=== PATIENT | female | born 1945 | race Caucasian/White ===

== ENCOUNTER 2017-07-26 16:53 | Emergency (ER) | payer MEDICARE, BC ==
--- NOTE | 2017-07-26 17:13 | Emergency Department Record ---
History of Present Illness - General Chief complaint: Extremity Problem Stated complaint: RIGHT LEG INJURY Time Seen by Provider: 07/26/17 17:12 Source: Patient Mode of Arrival: Wheelchair Limitations: No limitations - History of Present Illness Initial comments: The patient is here due to injuring her R lower leg about 2 hours ago. She was splitting logs and a log rolled back and hit her in the R anterior lower leg. Now the leg is quite painful and swollen. She has not been walking on it because her family would not let her. She denies any numbness or tingling. MD Complaint: Extremity pain Onset/Timin -: Minutes(s) Location: Right, Lower Leg Severity scale (1-10): 6 Quality: Burning Consistency: Intermittent - Related Data Allergies Allergy/AdvReac Type Severity Reaction Status Date / Time acetaminophen [From Percocet] Allergy VOMITING Verified 12/18/14 19:38 lisinopril [From Prinivil] Allergy SWELLING Verified 12/18/14 19:38 OF THE FACE meperidine HCl [From Demerol] Allergy SWELLING Verified 12/18/14 19:38 OF THE FACE oxycodone HCl [From Percocet] Allergy VOMITING Verified 12/18/14 19:38 prochlorperazine edisylate Allergy NEUROTOXICI Verified 12/18/14 19:38 [From Compazine] TY prochlorperazine maleate Allergy NEUROTOXICI Verified 12/18/14 19:38 [From Compazine] TY azithromycin AdvReac VOMITING Verified 08/17/15 13:57 Travel Screening - Travel/Exposure Within Last 30 Days Have you traveled within the last 30 days?: No - Travel/Exposure Within Last Year Have you traveled outside the [place] in the last year?: No - Additonal Travel Details Have you been exposed to anyone with a communicable illness?: No - Travel Symptoms Symptom Screening: None Review of Systems Constitutional: Denies: Chills, Fever Eyes: Denies: Eye discharge ENT: Denies: Congestion Past Medical History - SOCIAL HISTORY Smoking Status: Former smoker Alcohol Use: None Drug Use: None - RESPIRATORY Hx Respiratory Disorders: No Hx Asthma: No - CARDIOVASCULAR Hx Cardio Disorders: Yes Hx Cardiac Cath: Yes Hx Chest Pain: Yes Hx Heart Attack: Yes (1997) - NEURO Hx Neuro Disorders: No - GI Hx GI Disorders: No - Hx Genitourinary Disorders: No Hx Bladder Problem: Yes (Sling) - ENDOCRINE Hx Endocrine Disorders: No Hx Diabetes: No Hx Thyroid Disease: No - MUSCULOSKELETAL Hx Musculoskeletal Disorders: Yes Hx Arthritis: Yes Hx Osteoporosis: Yes - PSYCH Hx Psych Problems: No - HEMATOLOGY/ONCOLOGY Hx Hematology/Oncology Disorders: No Hx Anemia: Yes (during ) Hx Cancer: Yes (Breast Right side) Hx Chemotherapy: Yes Hx Radiation Therapy: Yes Family Medical History Any Significant Family History?: No Hx Cancer: Father, Brother/Sister Hx Heart Disease: Mother, Children Hx HTN: Mother, Brother/Sister Hx Stroke: Children, Grandparents Physical Exam - General General Appearance: Alert, Cooperative, No acute distress - Head Head exam: Atraumatic, Normocephalic, Normal inspection - Eye Eye exam: Normal appearance, PERRL - Extremities Extremities exam: Normal capillary refill, Tenderness (There is tenderness to the mid to distal R anterior lower leg.), Other (The R leg and foot is NVI. The DP pulses are trace and equal bilaterally and the PT pulses are 2+ and equal bilaterally.). negative: Normal inspection (There is a moderate bruise to the anterior R lower leg inferiorly.), Full ROM, Joint swelling Image of Full Body: 1 - Location of trauma with bruising and mild edema. Course Vital Signs 07/26/17 17:03 Temperature 98.0 F Pulse Rate 69 Respiratory 20 Rate Blood Pressure 184/86 Pulse Ox 96 - Reevaluation(s) Reevaluation #1: I explained to the patient that the xrays augustin not demonstrate any fx. She is to go home and ice and elevate the leg as much as possible for 3 days. 07/26/17 17:47 Medical Decision Making - Data Complexity MDM Data: X-Ray Ordered and/or Reviewed - Radiology Data Radiology results: Report reviewed (R Tib/ Fib: Neg per Rad.) Disposition Disposition: Discharge Clinical Impression: Contusion, lower leg Qualifiers: Encounter type: initial encounter Laterality: right Qualified Code(s): S80.11XA - Contusion of right lower leg, initial encounter Disposition: Home, Self-Care Condition: (1) Good Instructions: Contusion in Adults (ED) Additional Instructions: Please ice and elevate the R leg as much as possible for the next 3 days. Please take Tylenol for pain. Please see your PCP early next week if not better. Return to the ER for any increased pain, numbness, tingling or weakness to the R foot. Forms: Patient Portal Access Time of Disposition: 17:49 Quality - Quality Measures Quality Measures: N/A - Blood Pressure Screening View Details: Yes Does Patient Have Any of the Following: No Blood Pressure Classification: Pre-Hypertensive BP Reading Systolic Measurement: 184 Diastolic Measurement: 86 Screening for High Blood Pressure: < Pre-Hypertensive BP, F/U Documented > [ G8950] Pre-Hypertensive Follow-up Interventions: Referral to alternative/primary care provider.
[2017-07-26] MEDS ORDERED: ACETAMINOPHEN 325 MG TAB PO ONE (17:46)
--- NOTE | 2017-07-27 20:52 | RADIOLOGY REPORT ---
EXAM: LOWER LEG, RIGHT HISTORY: LOWER RIGHT LEG TRAUMA AND PAIN. TECHNIQUE: Two-view right tibia/fibula. COMPARISON: None. ENCOUNTER: Initial. FINDINGS: There is lower pretibial soft tissue swelling of the right leg. No fracture. No radiodense foreign body. IMPRESSION: 1. NO ACUTE OSSEOUS ABNORMALITY OF THE RIGHT TIBIA OR FIBULA. 2. PRETIBIAL SOFT TISSUE SWELLING, LIKELY DUE TO CONTUSION. JOB NUMBER: [id number] MTDD
== END 2017-07-26 18:15 | disposition home or self-care (01) ==
LOC: ER 16:53
DX: S80.11XA Contusion of right lower leg, initial encounter (principal); W22.8XXA Striking against or struck by other objects, initial encounter; Y93.H2 Activity, gardening and landscaping
CPT/HCPCS: 99283

== ENCOUNTER 2018-01-25 21:33 | Emergency (ER) | payer MEDICARE, BC ==
--- NOTE | 2018-01-25 22:06 | Emergency Department Record ---
History of Present Illness - General Chief complaint: Lower Extremity Pain Stated complaint: HURNEA PAIN Time Seen by Provider: 01/25/18 22:05 Source: Patient Mode of Arrival: Ambulatory Limitations: No limitations - History of Present Illness Initial comments: The patient is here due to L groin pain for 2 days. She has a femoral hernia present that is scheduled to be operated on Saturday morning in 2 days. It started to become painful 2 days ago. She is taking Tylenol for pain which is helping but her sister had a hernia that became obstructed and she is concerned that it is happening to her also. There has been no AP, nausea, vomiting, constipation or fever. MD Complaint: Other Onset/Timin -: Days(s) Location: Left History of Same: No Quality: Aching Consistency: Constant Worsens with: Exertion Associated Symptoms: Denies other symptoms - Related Data Previous Rx's Medication Instructions Recorded Nitrofurantoin [place] [Macrobid] 100 mg PO BID #14 capsule 01/25/18 Allergies Allergy/AdvReac Type Severity Reaction Status Date / Time lisinopril [From Prinivil] Allergy SWELLING Verified 12/18/14 19:38 OF THE FACE meperidine HCl [From Demerol] Allergy SWELLING Verified 12/18/14 19:38 OF THE FACE oxycodone HCl [From Percocet] Allergy VOMITING Verified 12/18/14 19:38 prochlorperazine edisylate Allergy NEUROTOXICI Verified 12/18/14 19:38 [From Compazine] TY prochlorperazine maleate Allergy NEUROTOXICI Verified 12/18/14 19:38 [From Compazine] TY azithromycin AdvReac VOMITING Verified 08/17/15 13:57 Travel Screening - Travel/Exposure Within Last 30 Days Have you traveled within the last 30 days?: No - Travel Symptoms Symptom Screening: None Review of Systems Constitutional: Denies: Chills, Fever Past Medical History - SOCIAL HISTORY Smoking Status: Former smoker Alcohol Use: None Drug Use: None - RESPIRATORY Hx Respiratory Disorders: No Hx Asthma: No - CARDIOVASCULAR Hx Cardio Disorders: Yes Hx Cardiac Cath: Yes Hx Heart Attack: Yes (1997) Hx Hypertension: Yes (on meds good control) Hx Coronary Artery Disease: Yes - NEURO Hx Neuro Disorders: No - GI Hx GI Disorders: Yes Hx Abdominal Pain: Yes Hx Irritable Bowel: Yes Hx Nausea/Vomiting: Yes (occassionally) - Hx Genitourinary Disorders: No Hx Bladder Problem: Yes (Sling. no problems) - ENDOCRINE Hx Endocrine Disorders: No Hx Diabetes: No Hx Thyroid Disease: No - MUSCULOSKELETAL Hx Musculoskeletal Disorders: Yes Hx Arthritis: Yes Hx Osteoporosis: Yes - PSYCH Hx Psych Problems: No - HEMATOLOGY/ONCOLOGY Hx Hematology/Oncology Disorders: Yes Hx Anemia: Yes (during ) Hx Cancer: Yes (Breast Right side) Hx Chemotherapy: Yes Hx Radiation Therapy: Yes Family Medical History Any Significant Family History?: Yes Hx Cancer: Father, Brother/Sister Hx Heart Disease: Mother, Children Hx HTN: Mother, Brother/Sister Hx Stroke: Children, Grandparents Physical Exam - General General Appearance: Alert, Cooperative, No acute distress - Head Head exam: Atraumatic, Normocephalic - Eye Eye exam: Normal appearance, PERRL - Neck Neck exam: Normal inspection, Full ROM. negative: Tenderness - Respiratory Respiratory exam: Normal lung sounds bilaterally. negative: Respiratory distress - Cardiovascular Cardiovascular Exam: Regular rate, Normal rhythm, Normal heart sounds - GI/Abdominal GI/Abdominal exam: Soft, Normal bowel sounds, Tenderness (There is L groin tenderness but no swelling, masses, or hernia's palpated.), Other (There is no abdominal tenderness in the lower quads to palpation. ). negative: Distended, Guarding, Pulsatile mass, Rebound, Rigid - Extremities Extremities exam: Normal inspection, Full ROM, Normal capillary refill. negative: Joint swelling, Tenderness Course Vital Signs 01/25/18 21:49 Temperature 97.9 F Pulse Rate [ 91 H Pulse Ox Probe] Respiratory 20 Rate Blood Pressure 174/116 [Left Arm] Pulse Ox 96 - Reevaluation(s) Reevaluation #1: The patient is doing very well at this time. She states she is having mild urinary urgency at times and I did explain that she clearly has a UTI. I offered to order an abdominal CT to be sure there was no acutely new need to move up the patient's surgery in 2 days. The reason I explained was that I was fairly certain there is no acute intestinal obstruction or strangulation but the only way I could be 100% sure was to perform the CT scan due to the difficulties with examining the L femoral hernia. The patient is refusing the CT and wants to continue with the plan for surgery on Saturday in 34 hours. She understands that by NOT performing the CT we cannot be sure there is no strangulation of intestines and no need to move up the surgery. The patient understands and accepts the risks of refusing. I did discuss the case with Dr. Choi and he agrees with the plan. 01/25/18 23:04 Medical Decision Making - Data Complexity MDM Data: Labs Ordered and/or Reviewed (UA: UTI) Disposition Disposition: Discharge Clinical Impression: Hernia Disposition: Home, Self-Care Condition: (2) Stable Instructions: Inguinal Hernia (ED) Additional Instructions: Please continue the Tylenol for pain and continue the Macrobid. Please continue with the plans for surgery on Saturday and return to the ER for any worsening symptoms, worse pain, fever, or vomiting. Prescriptions: Nitrofurantoin [place] [Macrobid] 100 mg PO BID #14 capsule Forms: Patient Portal Access Time of Disposition: 22:58 Quality - Quality Measures Quality Measures: N/A - Blood Pressure Screening View Details: Yes Does Patient Have Any of the Following: No Blood Pressure Classification: Pre-Hypertensive BP Reading Systolic Measurement: 138 Diastolic Measurement: 68 Screening for High Blood Pressure: < Pre-Hypertensive BP, F/U Documented > [ G8950] Pre-Hypertensive Follow-up Interventions: Referral to alternative/primary care provider.
[2018-01-25 22:26] LABS: URINE APPEARANCE SL CLOUDY; URINE BILIRUBIN NEGATIVE (NEGATIVE); URINE BLOOD TRACE-I (NEGATIVE); URINE COLOR YELLOW; URINE GLUCOSE (UA) NEGATIVE (NEGATIVE); URINE KETONE NEGATIVE (NEGATIVE); URINE LEUKOCYTE ESTERASE LARGE (NEGATIVE); URINE NITRITE NEGATIVE (NEGATIVE); URINE PROTEIN NEGATIVE (NEGATIVE); URINE UROBILINOGEN 0.2 E.U./dL (0.20 - 1.00)
[2018-01-25 22:33] LABS: URINE EPITHELIAL CELLS 0 - 2 (FEW); URINE RBC 0 - 2 (NONE SEEN); URINE WBC 36 - 50 (0-2/hpf)
[2018-01-25 22:34] LABS: URINE BACTERIA FEW
[2018-01-25] MEDS ORDERED: NITROFURANTOIN MONO 100 MG CAPSULE PO ONE (22:36)
== END 2018-01-25 23:05 | disposition home or self-care (01) ==
LOC: ER 21:33
DX: I20.0 Unstable angina (principal); R11.0 Nausea; R61 Generalized hyperhidrosis; I10 Essential (primary) hypertension; I25.2 Old myocardial infarction; Z87.891 Personal history of nicotine dependence; K40.90 Unilateral inguinal hernia, without obstruction or gangrene, not specified as recurrent; N39.0 Urinary tract infection, site not specified; Z85.3 Personal history of malignant neoplasm of breast
CPT/HCPCS: 71045; 80048; 81001; 82550; 82553; 84484; 85025; 85379; 85610; 85730; 93005; 93010; 96365; 96366; 96368; 96375; 99283; 99285; J2405

== ENCOUNTER 2018-01-25 23:57 | Emergency (ER) | payer MEDICARE, BC ==
[2018-01-26] MEDS ORDERED: NITROGLYCERIN 0.4MG SL TABLET #25 BTL SL ONE ×2 (00:10→00:39)
[2018-01-26] MEDS ORDERED: ASPIRIN 81 MG CHEWABLE TABLET PO ONE (00:10)
--- NOTE | 2018-01-26 00:11 | Emergency Department Record ---
History of Present Illness - General Chief Complaint: Chest Pain Stated Complaint: CHEST PAIN Time Seen by Provider: 01/26/18 00:07 Source: Patient Mode of Arrival: Wheelchair Limitations: No limitations - History of Present Illness Initial Comments: The patient is here due to a one hour hx of CP. She describes it as a retrosternal chest heaviness, nonradiating, with mild SOB and sweating. The pain started at rest and is similar to her heart attack in 1997. The patient was just in the ER 2 hours ago due to L groin pain and was diagnosed with a UTI and started on macrobid. She does have a hx of HTN but per her did not have a cardiac stent with the ME. Complaint: Chest pain Onset/Timin -: Hour(s) Onset: During exertion Pain Location: Substernal Pain Radiation: None Severity: Severe Severity scale (1-10): >10 Consistency: Constant Improves With: Nothing Worsens With: Exertion Context: New medications Anginal Symptoms: Diaphoresis, Nausea Treatments Prior to Arrival: None - Related Data Previous Rx's Medication Instructions Recorded Nitrofurantoin [place] [Macrobid] 100 mg PO BID #14 capsule 01/25/18 Allergies Allergy/AdvReac Type Severity Reaction Status Date / Time lisinopril [From Prinivil] Allergy SWELLING Verified 12/18/14 19:38 OF THE FACE meperidine HCl [From Demerol] Allergy SWELLING Verified 12/18/14 19:38 OF THE FACE oxycodone HCl [From Percocet] Allergy VOMITING Verified 12/18/14 19:38 prochlorperazine edisylate Allergy NEUROTOXICI Verified 12/18/14 19:38 [From Compazine] TY prochlorperazine maleate Allergy NEUROTOXICI Verified 12/18/14 19:38 [From Compazine] TY azithromycin AdvReac VOMITING Verified 08/17/15 13:57 Travel Screening - Travel/Exposure Within Last 30 Days Have you traveled within the last 30 days?: No - Travel Symptoms Symptom Screening: Weakness Past Medical History - SOCIAL HISTORY Smoking Status: Former smoker Alcohol Use: None Drug Use: None - RESPIRATORY Hx Respiratory Disorders: No Hx Asthma: No - CARDIOVASCULAR Hx Cardio Disorders: Yes Hx Cardiac Cath: Yes Hx Heart Attack: Yes (1997) Hx Hypertension: Yes (on meds good control) Hx Coronary Artery Disease: Yes - NEURO Hx Neuro Disorders: No - GI Hx GI Disorders: Yes Hx Abdominal Pain: Yes Hx Irritable Bowel: Yes Hx Nausea/Vomiting: Yes (occassionally) - Hx Genitourinary Disorders: No Hx Bladder Problem: Yes (Sling. no problems) - ENDOCRINE Hx Endocrine Disorders: No Hx Diabetes: No Hx Thyroid Disease: No - MUSCULOSKELETAL Hx Musculoskeletal Disorders: Yes Hx Arthritis: Yes Hx Osteoporosis: Yes - PSYCH Hx Psych Problems: No - HEMATOLOGY/ONCOLOGY Hx Hematology/Oncology Disorders: Yes Hx Anemia: Yes (during ) Hx Cancer: Yes (Breast Right side) Hx Chemotherapy: Yes Hx Radiation Therapy: Yes Family Medical History Any Significant Family History?: Yes Hx Cancer: Father, Brother/Sister Hx Heart Disease: Mother, Children Hx HTN: Mother, Brother/Sister Hx Stroke: Children, Grandparents Physical Exam - General General Appearance: Alert, Oriented x3, Cooperative, No acute distress - Head Head exam: Atraumatic, Normocephalic, Normal inspection - Eye Eye exam: Normal appearance, PERRL, EOMI - ENT Throat exam: Normal inspection. negative: Tonsillar erythema, Tonsillar exudate - Neck Neck exam: Normal inspection, Full ROM. negative: Tenderness - Respiratory Respiratory exam: Normal lung sounds bilaterally. negative: Respiratory distress - Cardiovascular Cardiovascular Exam: Regular rate, Normal rhythm, Normal heart sounds - GI/Abdominal GI/Abdominal exam: Soft, Normal bowel sounds. negative: Tenderness - Extremities Extremities exam: Normal inspection, Full ROM, Normal capillary refill, Other ( The radial and DP pulses are 2+ and equal bilaterally.). negative: Tenderness - Neurological Neurological exam: Alert. negative: Motor sensory deficit Course Vital Signs 01/26/18 00:01 Pulse Rate 94 H Respiratory 20 Rate Blood Pressure 162/123 Pulse Ox 97 - Reevaluation(s) Reevaluation #1: The patient is doing better at this time. Her pain is improved with the first NTG pill. 01/26/18 00:33 Reevaluation #2: The patient is doing better at this time. Her pain is much improved and the nausea, sweating, and GARY have resolved. There is no pain radiating to the back , arms or jaw. The patient again states this is exactly like her ME in 1997. 01/26/18 00:47 Reevaluation #3: At this time the patient is now having a slight increase in her chest pain. The GI medicines did not work but the 2nd NTg pill did help some. 2nd EKG: Neg for any acute or ischemic changes. 01/26/18 01:05 01/26/18 01:17 Reevaluation #4: The patient is resting comfortably at this time. She is still complaining of 5/ 10 CP but appears very stable and comfortable. There is no sweating, GARY, or nausea and her color is good. Her EKG's have not demonstrated any injury pattern but since she states it is like her previous ME we will start the patient on Heparin and a Nitro drip and admit her to Cardiology. We did attempt to admit her to [facility] at [facility] but was told there are no inpatient female beds at [facility] for the step down unit. Due to that fact we will attempt to transfer her [place] [facility] 01/26/18 01:48 Reevaluation #5: Because there are no inpatient beds at [facility] we did contact Dr. Cade who is the Seasonal Sales Associate sr. consultant at [facility] and he did accept the patient in transfer. I did explain the issues with the patient and the previous plan to have her L femoral hernia operated on Saturday by Dr. Choi. Dr. Cade did agree to admit the patient to [facility] to his Cardiology service. 01/26/18 01:58 Medical Decision Making - Data Complexity MDM Data: Labs Ordered and/or Reviewed, X-Ray Ordered and/or Reviewed, EKG Ordered and/or Reviewed - Lab Data Result diagrams: 01/26/18 00:03 01/26/18 00:03 - EKG Data -: EKG Interpreted by Me EKG: No Acute Changes, Normal EKG - Radiology Data Radiology results: Image reviewed (CXR: No acute changes.) Disposition Disposition: Transfer Clinical Impression: Unstable angina Disposition: Acute Care Hospital Transfer [place] [facility] [place] For Transfer: Cardiology Accepting Physician: Rayo Time Discussed w/Accepting Physician: 03:00 Condition: (2) Stable Forms: Patient Portal Access Time of Disposition: 03:00 Quality - Quality Measures Quality Measures: N/A - Blood Pressure Screening View Details: Yes Does Patient Have Any of the Following: Active Dx of HTN Blood Pressure Classification: Hypertensive Reading Systolic Measurement: 162 Diastolic Measurement: 123 Screening for High Blood Pressure: Patient Exclusion, Hx of HTN [G9744]
[2018-01-26 00:20] LABS: BASO % 0.6 % (0-6); EOS % 2.1 % (0-6); GRAN % 54.9 % (47-80); HEMATOCRIT 41.4 % (35.0-47.0); HEMOGLOBIN 13.7 gm/dl (11.6-16.0); LYMPH % 28.1 % (16-45); MEAN CELL VOLUME 93.5 fl (81-97); MEAN CORPUSCULAR HEMOGLOBIN 30.9 pg (27-33); MEAN CORPUSCULAR HGB CONC 33.1 g/dl (32-36); MONO % 14.3 % (0-9); PLATELET COUNT 367 K/uL (130-400); RED BLOOD COUNT 4.43 M/uL (3.80-5.40); RED CELL DISTRIBUTION WIDTH 12.3 % (11.5-14.5); WHITE BLOOD COUNT W/O DIFF 8.5 K/uL (4.2-12.2)
[2018-01-26] MEDS ORDERED: MAGNESIUM HYDROXIDE/AL HYDROX 30 ML, LIDOCAINE VISC 2% 200 MG PO ONE ×2 (00:21)
[2018-01-26] MEDS ORDERED: ONDANSETRON HCL IV 4 MG/2 ML VIAL IVP ONE (00:24)
[2018-01-26 00:34] LABS: BLOOD UREA NITROGEN 25 mg/dL (8-23); CREATININE 0.8 mg/dL (0.5-0.9); EST GLOMERULAR FILTRATION RATE > 60 mL/min
[2018-01-26 00:36] LABS: GLUCOSE,RANDOM 154 mg/dL (74-109)
[2018-01-26 00:39] LABS: CREATINE PHOSPHOKINASE 57 U/L (26-192)
[2018-01-26 00:41] LABS: CKMB 1.9 ng/mL (<3.77)
[2018-01-26 00:44] LABS: INR 0.9; PARTIAL THROMBOPLASTIN TIME 22.7 SECONDS (24.5-39.1); PROTHROMBIN TIME (PATIENT) 10.2 SECONDS (9.5-12.1)
[2018-01-26] MEDS ORDERED: MORPHINE SULFATE 5 MG/ML PFS IVP ONE ×2 (01:03→01:20)
[2018-01-26] MEDS ORDERED: HEPARIN SODIUM 1000 UNIT/1 ML 10ML VIAL IVP ONE (01:33)
[2018-01-26] MEDS ORDERED: SUCRALFATE 1 G/10 ML UD PO ONE (01:36)
[2018-01-26] MEDS ORDERED: HEPARIN SODIUM/D5W 25,000 UNITS/500 ML BAG IV SCH (01:45)
[2018-01-26] MEDS ORDERED: NITROGLYCERIN/D5W 50 MG/250 ML ML IV SCH (03:00)
--- NOTE | 2018-01-27 09:31 | RADIOLOGY REPORT ---
EXAM: CHEST, SINGLE AP PORTABLE VIEW HISTORY: PATIENT HAS CHEST PAIN. TECHNIQUE: A single AP portable view of the chest was provided along with the comparison study dated 11/20/16. FINDINGS: Cardiomegaly is noted. Tortuosity of the thoracic aorta is noted. The patient has levoconvex scoliosis of the thoracolumbar spine. Postoperative changes are identified in the right axillary region. COPD changes are identified. There is no radiographic evidence of a focal infiltrate or pleural effusion. No pneumothorax is noted. IMPRESSION: STABLE RADIOGRAPHIC APPEARANCE OF THE CHEST WITH RESPECT TO THE PRIOR EXAMINATION. JOB NUMBER: [id number] [facility]
== END 2018-01-26 03:53 | disposition short-term general hospital (02) ==
LOC: ER 23:57
DX: I20.0 Unstable angina (principal); R11.0 Nausea; R61 Generalized hyperhidrosis; I10 Essential (primary) hypertension; I25.2 Old myocardial infarction; Z87.891 Personal history of nicotine dependence
CPT/HCPCS: 71045; 80048; 82550; 82553; 84484; 85025; 85379; 85610; 85730; 93005; 93010; J2405

== ENCOUNTER 2018-11-10 21:11 | Emergency (ER) | payer MEDICARE, BC ==
[2018-11-10 23:07] LABS: HEMATOCRIT 42.1 % (35.0-47.0); HEMOGLOBIN 13.9 gm/dl (11.6-16.0); MEAN CELL VOLUME 95.7 fl (81-97); MEAN CORPUSCULAR HEMOGLOBIN 31.6 pg (27-33); MEAN PLATELET VOLUME 10.1 fl (7.4-10.4); PLATELET COUNT 290 K/uL (130-400); RED CELL DISTRIBUTION WIDTH 12.5 % (11.5-14.5); WHITE BLOOD COUNT W/O DIFF 12.7 K/uL (4.2-12.2)
[2018-11-10 23:08] LABS: URINE APPEARANCE SL CLOUDY; URINE BILIRUBIN NEGATIVE (NEGATIVE); URINE BLOOD TRACE-I (NEGATIVE); URINE COLOR YELLOW; URINE GLUCOSE (UA) NEGATIVE (NEGATIVE); URINE KETONE NEGATIVE (NEGATIVE); URINE LEUKOCYTE ESTERASE TRACE (NEGATIVE); URINE NITRITE NEGATIVE (NEGATIVE); URINE PROTEIN NEGATIVE (NEGATIVE); URINE UROBILINOGEN 0.2 E.U./dL (0.20 - 1.00)
[2018-11-10 23:15] LABS: BLOOD UREA NITROGEN 39 mg/dL (8-23); CREATININE 0.7 mg/dL (0.5-0.9); EST GLOMERULAR FILTRATION RATE > 60 mL/min
[2018-11-10 23:16] LABS: TOTAL PROTEIN 7.9 g/dL (6.6-8.7)
[2018-11-10 23:18] LABS: GLUCOSE,RANDOM 156 mg/dL (74-109); URINE EPITHELIAL CELLS 0 - 2 (FEW); URINE RBC 0 - 2 (NONE SEEN); URINE WBC NONE SEEN (0-2/hpf)
[2018-11-10 23:19] LABS: URINE AMORPHOUS SEDIMENT 2+
[2018-11-10 23:20] LABS: ALT/SGPT 26 U/L (<33)
[2018-11-10 23:21] LABS: ALBUMIN 4.6 g/dL (4.0-5.0); ALKALINE PHOSPHATASE 69 U/L (35-104); AST/SGOT 29 U/L (10.0-35.0); BILIRUBIN,DIRECT < 0.2 mg/dL (0-0.3); LIPASE 19 U/L (13-60)
[2018-11-10 23:37] LABS: PLATELET ESTIMATE NORMAL (NORMAL)
[2018-11-10] MEDS ORDERED: ACETAMINOPHEN 1,000 MG/100 ML BTL IVPB ONE (23:59)
[2018-11-10] MEDS ORDERED: 0.9 % SODIUM CHLORIDE 1,000 ML BAG IV ONE (23:59)
--- NOTE | 2018-11-11 00:05 | Emergency Department Record ---
History of Present Illness - General Chief Complaint: Abdominal Pain Stated Complaint: ABDOMINAL PAIN Time Seen by Provider: 11/10/18 21:51 Source: Patient Mode of Arrival: Ambulatory Limitations: No limitations - History of Present Illness Initial Comments: The patient is here due to a 12 hour hx of diffuse AP and bloating. She denies any nausea, vomiting, fever, or dysuria but has started having loose yellow stools here in the ER. The patient denies any recent travel, recent Abx use or blood in the stool. She has no hx of similar issues. MD Complaint: Abdominal pain Onset/Timin -: Hour(s) Location: Diffuse Radiation: None Migration to: No migration Severity: Mild Severity scale (1-10): 4 Quality: Other Consistency: Constant Improves With: Nothing Worsens With: Nothing Associated Symptoms: Nausea - Related Data Patient : No Home Medications Medication Instructions Recorded Confirmed Last Taken Atorvastatin Calcium 20 mg PO DAILY 11/11/18 11/11/18 Unknown Losartan Potassium 12.5 mg PO DAILY 11/11/18 11/11/18 Unknown Metoprolol Succinate 25 mg PO DAILY 11/11/18 11/11/18 Unknown Allergies Allergy/AdvReac Type Severity Reaction Status Date / Time lisinopril [From Prinivil] Allergy SWELLING Verified 11/11/18 00:44 OF THE FACE meperidine HCl [From Demerol] Allergy SWELLING Verified 11/11/18 00:44 OF THE FACE nitrofurantoin Allergy CHEST PAIN Verified 11/11/18 00:47 [From Macrobid] oxycodone HCl [From Percocet] Allergy VOMITING Verified 11/11/18 00:44 prochlorperazine edisylate Allergy NEUROTOXICI Verified 11/11/18 00:44 [From Compazine] TY prochlorperazine maleate Allergy NEUROTOXICI Verified 11/11/18 00:44 [From Compazine] TY tramadol Allergy ITCHING Verified 11/11/18 00:47 azithromycin AdvReac VOMITING Verified 11/11/18 00:44 Travel Screening - Travel/Exposure Within Last 30 Days Have you traveled within the last 30 days?: No - Travel/Exposure Within Last Year Have you traveled outside the [place] in the last year?: No - Additonal Travel Details Have you been exposed to anyone with a communicable illness?: No - Travel Symptoms Symptom Screening: None Review of Systems Constitutional: Denies: Chills, Fever Eyes: Denies: Eye discharge ENT: Denies: Congestion Respiratory: Denies: Cough, Dyspnea Past Medical History - SOCIAL HISTORY Smoking Status: Former smoker Alcohol Use: None Drug Use: None - RESPIRATORY Hx Respiratory Disorders: No Hx Asthma: No - CARDIOVASCULAR Hx Cardio Disorders: Yes Hx Cardiac Cath: Yes Hx Heart Attack: Yes (1997) Hx Hypertension: Yes (on meds good control) Hx Coronary Artery Disease: Yes - NEURO Hx Neuro Disorders: No - GI Hx GI Disorders: Yes Hx Abdominal Pain: Yes Hx Irritable Bowel: Yes Hx Nausea/Vomiting: Yes (occassionally) - Hx Genitourinary Disorders: No Hx Bladder Problem: Yes (Sling. no problems) - ENDOCRINE Hx Endocrine Disorders: No Hx Diabetes: No Hx Thyroid Disease: No - MUSCULOSKELETAL Hx Musculoskeletal Disorders: Yes Hx Arthritis: Yes Hx Osteoporosis: Yes - PSYCH Hx Psych Problems: No - HEMATOLOGY/ONCOLOGY Hx Hematology/Oncology Disorders: Yes Hx Anemia: Yes (during ) Hx Cancer: Yes (Breast Right side) Hx Chemotherapy: Yes Hx Radiation Therapy: Yes Family Medical History Any Significant Family History?: No Hx Cancer: Father, Brother/Sister Hx Heart Disease: Mother, Children Hx HTN: Mother, Brother/Sister Hx Stroke: Children, Grandparents Physical Exam - General General Appearance: Alert, Oriented x3, Cooperative, No acute distress - Head Head exam: Atraumatic, Normocephalic, Normal inspection - Eye Eye exam: Normal appearance, PERRL, EOMI - Neck Neck exam: Normal inspection, Full ROM. negative: Tenderness - Respiratory Respiratory exam: Normal lung sounds bilaterally. negative: Respiratory distress - Cardiovascular Cardiovascular Exam: Regular rate, Normal rhythm, Normal heart sounds - GI/Abdominal GI/Abdominal exam: Soft, Normal bowel sounds, Distended, Tenderness (There is mild diffuse tenderness in all 4 quads.). negative: Rebound, Rigid - Extremities Extremities exam: Normal inspection, Full ROM, Normal capillary refill. negative: Tenderness - Neurological Neurological exam: Alert, Normal gait. negative: Abnormal gait, Motor sensory deficit - Psychiatric Psychiatric exam: negative: Anxious Course Vital Signs 11/10/18 11/10/18 21:19 22:25 Temperature 97.7 F Pulse Rate 131 H Pulse Rate [ 96 H Pulse Ox Probe] Respiratory 20 18 Rate Blood Pressure 163/109 Blood Pressure 155/82 [Left] Pulse Ox 94 L 95 - Reevaluation(s) Reevaluation #1: The patient is doing a lot better at this time. Her pain has now resolved and she is resting comfortably. On exam her abdomen is very soft and nontender in all 4 quads. She is ready for home. 11/11/18 02:13 Medical Decision Making - Data Complexity MDM Data: Labs Ordered and/or Reviewed, X-Ray Ordered and/or Reviewed - Lab Data Result diagrams: 11/10/18 22:50 11/10/18 22:50 Lab Results 11/10/18 11/10/18 11/10/18 Range/Units 22:50 22:50 22:50 WBC 12.7 H (4.2-12.2) K/uL RBC 4.40 (3.80-5.40) M/uL Hgb 13.9 (11.6-16.0) gm/dl Hct 42.1 (35.0-47.0) % MCV 95.7 (81-97) fl MCH 31.6 (27-33) pg MCHC 33.0 (32-36) g/dl RDW 12.5 (11.5-14.5) % Plt Count 290 (130-400) K/uL MPV 10.1 (7.4-10.4) fl Neutrophils % 82.0 H (47-80) % Band Neutrophils % 2.0 (0-5) % Eosinophils % Not Reportable Basophils % Not Reportable Lymphocytes 6.0 L (16-45) % Monocytes 10.0 H (0-9) % Platelet Estimate Normal (NORMAL) RBC Morphology Normal Sodium 143 (136-145) mmol/L Potassium 3.8 (3.4-4.5) mmol/L Chloride 101 (98-107) mmol/L Carbon Dioxide 28.0 (22-29) mmol/L Anion Gap 14.0 (7-16) BUN 39 H (8-23) mg/dL Creatinine 0.7 (0.5-0.9) mg/dL Estimated GFR > 60 mL/min Random Glucose 156 H (74-109) mg/dL Calcium 10.0 (8.8-10.2) mg/dL Total Bilirubin 0.50 (0.2-1.0) mg/dL Direct Bilirubin < 0.2 (0-0.3) mg/dL AST 29 (10.0-35.0) U/L ALT 26 (<33) U/L Alkaline Phosphatase 69 (35-104) U/L Total Protein 7.9 (6.6-8.7) g/dL Albumin 4.6 (4.0-5.0) g/dL Lipase 19 (13-60) U/L Urine Color Yellow Urine Appearance Sl cloudy Urine pH 8.0 (5.0-8.0) Ur Specific [place] 1.010 (1.002-1.030) Urine Protein Negative (NEGATIVE) Urine Glucose (UA) Negative (NEGATIVE) Urine Ketones Negative (NEGATIVE) Urine Blood Trace-i (NEGATIVE) Urine Nitrite Negative (NEGATIVE) Urine Bilirubin Negative (NEGATIVE) Urine Urobilinogen 0.2 (0.20 - 1.00) E.U./dL Ur Leukocyte Esterase Trace H (NEGATIVE) Urine RBC 0 - 2 (NONE SEEN) Urine WBC None seen (0-2/hpf) Ur Epithelial Cells 0 - 2 (FEW) Amorphous Sediment 2+ - Radiology Data Radiology results: Report reviewed (Abd CT: Neg for any acute changes.) Disposition Disposition: Discharge Clinical Impression: Abdominal pain Qualifiers: Abdominal location: generalized Qualified Code(s): R10.84 - Generalized abdominal pain Disposition: Home, Self-Care Condition: (2) Stable Instructions: Abdominal Pain (ED) Additional Instructions: Please continue your regular medicines and use Tylenol for pain. Please see your family doctor in 2-3 days for recheck. Return to the ER for any worsening pain, fever, or vomiting. Forms: Patient Portal Access Time of Disposition: 02:17 Quality - Quality Measures Quality Measures: N/A - Blood Pressure Screening View Details: Yes Does Patient Have Any of the Following: Active Dx of HTN Blood Pressure Classification: Hypertensive Reading Systolic Measurement: 163 Diastolic Measurement: 109 Screening for High Blood Pressure: Patient Exclusion, Hx of HTN [[id number]]
--- NOTE | 2018-11-12 13:51 | CT SCAN REPORT ---
EXAM: CT SCAN ABDOMEN/PELVIS W CONTRAST HISTORY: PATIENT HAS STERNAL PAIN. TECHNIQUE: Serial axial CT scan of the abdomen and pelvis was performed at 2.5 mm intervals from the dome of the diaphragm down to the pubic symphysis following the intravenous administration of 100 mL of Omnipaque-300. COMPARISON: No comparison CT's are available. FINDINGS: Lung windows of the lung bases demonstrate no CT evidence of a focal infiltrate or pleural effusion. Within the right posterolateral lobe, there are findings suspicious for herniated retroperitoneal fat content posteriorly. The visualized heart size and contour is within normal limits. The left hepatic lobe demonstrates a 6 mm hypodensity, which is too small to characterize further. I suspect this finding likely represents a small cyst. There are other smaller hypodensities, which are also too small to characterize further within the right hepatic lobe. Otherwise, the size, contour of the liver is within normal limits. The spleen, pancreas, adrenal glands, gallbladder are unremarkable. The bilateral kidneys demonstrate no CT evidence of hydronephrosis or hydroureter. 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 No renal or ureteral calculi are identified. Several small cysts are identified within both kidneys. The contour, caliber, and flow through the abdominal aorta is within normal limits. 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 Clinical correlation to the patient's symptoms is recommended. The right common iliac artery is mildly ectatic and measures approximately 1.1 cm in diameter. There is no CT evidence of retroperitoneal, pelvic, or inguinal lymphadenopathy. The bowel gas pattern is nonspecific and nonobstructive. Numerous colonic diverticula are noted without CT evidence of diverticulitis. There is no CT evidence of free intraperitoneal fluid or free intraperitoneal air. Urinary bladder is unremarkable. Uterus is absent. Bone windows demonstrate no CT evidence of a fracture or dislocation of the visualized osseous structures. Advanced degenerative disc disease is noted at the L4-L5 and L5-S1 disc space levels. Incidental note is made of a 2 cm duodenal diverticulum from the medial wall of the second segment of the duodenum. IMPRESSION: 1. NO CT EVIDENCE OF AN ACUTE INTRAABDOMINAL PROCESS. 2. 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 3. INCIDENTAL NOTE IS MADE OF A DUODENAL DIVERTICULUM. JOB NUMBER: [id number] [facility]
== END 2018-11-11 02:30 | disposition home or self-care (01) ==
LOC: ER 21:11
DX: R10.84 Generalized abdominal pain (principal); R19.7 Diarrhea, unspecified; R11.0 Nausea; I10 Essential (primary) hypertension; I25.2 Old myocardial infarction; Z87.891 Personal history of nicotine dependence; Z85.3 Personal history of malignant neoplasm of breast
CPT/HCPCS: 99284 ×2; 96365; 83690; 80076; 80048; 81001; 89055; 87427; 82272; 85027; 74177; Q9967; J7030